=== PATIENT | female | born 1950 | race Caucasian/White ===

== ENCOUNTER 2017-03-07 04:06 | Emergency (ER) | payer SELFPAY ==
[~2017-03-07] VITALS: Ht 172.7 cm; Wt 57.9 kg
[2017-03-07 04:14] VITALS: Ht 172.7 cm; Wt 57.9 kg
== END 2017-03-07 06:03 | disposition left against medical advice (07) ==
LOC: E/R 04:06
DX: Z53.21 Procedure and treatment not carried out due to patient leaving prior to being seen by health care provider (principal)